=== PATIENT | female | born 1965 | race Caucasian/White ===

== ENCOUNTER 2019-08-10 18:00 | Inpatient (IN) ==
--- NOTE | 2019-08-10 18:20 | DR.EXTPAIN ---
HPI - Time seen Time seen: 18:30 - PCP Primary Care Physician: andrew ortiz - HPI Comment HPI Comment: Patient saw her PCP and had labs drawn. She had been feeling bad and her labs came back Na 116 and WBC 21. Patient denies fever, cough, sore throat dysuria, skin infections. - Complaint/Symptoms Chief Complaint:: pt stated her doctor told her to come her to be admitted cause her labs her out of range. - Nurses notes reviewed Nurses Notes Review: Yes - Source History Provided: Patient - Mode of arrival Mode of Arrival: Wheelchair - Timing Onset of Chief Complaint: 07/31/19 PMH - PMH Past Medical History: Yes Past Medical History: Depression, Hypertension, Hypothyroidism Past Surgical History: Yes Surgical History: Joint Replacement - Family History History of Family Medical Conditions: Yes Family Medical History: Diabetes Mellitus, Coronary Artery Disease, Hypertension - Social History Does patient currently use any type of tobacco product: No Have you used tobacco products in the last 12 months: No Type of Tobacco Use: None Does any household member use tobacco: No Alcohol Use: None Do you use any recreational Drugs:: No Lives With: Family Lives Where: Home - infectious screening In the last 2 months have you had wt loss of >10#?: NO Have you had fever, night sweats or hemotysis?: No Have you traveled outside the country in the last 6 months?: No Isolation: Standard ROS - Review of Systems Constitutional: No Symptoms Reported Eyes: No Symptoms Reported ENTM: No Symptoms Reported Respiratoy: No Symptoms Reported Cardiovascular: No Symptoms Reported Gastrointestinal/Abdominal: No Symptoms Reported Genitourinary: No Symptoms Reported Neurological: No Symptoms Reported Musculoskeletal: Foot (right foot pain) Integumentary: No Symptoms Reported Hematologic/Lymphatic: No Symptoms Reported Endocrine: Other (thyroid disorder) Psychiatric: Depression All Other Systems: Reviewed and Negative PE - General Limitations: No Limitations General Appearance: Alert, In No Apparent Distress - Head Head Exam: Normal Inspection - Eyes Eye exam: Normal Appearance, EOMI - ENT ENT Exam: Normal Exam, Normal Oropharynx - Neck Neck Exam: Normal Inspection, Full ROM, Trachea Midline - Chest Chest Inspection: Normal Inspection - Respiratory Respiratory Exam: Normal Lung Sounds Bilat. negative: Respiratory Distress Respiratory Exam: Bilateral Clear to Auscultation - Cardiovascular Cardiovascular Exam: Regular Rate - Abdominal Exam Abdominal Exam: Normal Inspection, Normal Bowel Sounds, Soft. negative: Distention - Extremities Extremities Exam: Normal Inspection, Full ROM - Upper Extremities Shoulder Exam: Normal Inspection Arm Exam: Normal Inspection Elbow Exam: Normal Inspection Forearm Exam: Normal Inspection Hand Exam: Normal Inspection Neurosensory Exam: Normal Exam - Lower Extremities Hip/Pelvis Exam: Normal Inspection Upper Leg Exam: Normal Inspection Knee Exam: Normal Inspection Lower Leg Exam: Normal Inspection Ankle Exam: Normal Inspection Foot/Toe Exam: Normal Inspection, Full ROM, Tenderness (right foot) - Vital Signs Vitals: Temperature 97.4 F Pulse Rate 66 Respiratory Rate 18 Blood Pressure 121/49 O2 Sat by Pulse Oximetry 96 Course - Treatment Treatment: URINE PENDING - Consultation Called: 19:30 Call Returned: 19:30 Consultation Comments: CASE DISCUSSED WITH dr. Shay ADMIT AND START LEVAQUIN AND GET CULTURES. uRINE PENDING ON ADMISSION. ROR - Labs Reviewed Result Diagrams: 08/10/19 18:54 08/10/19 18:54 - Labs Reviewed Laboratory: WBC 20.0 X10^3/uL (3.6-10.0) H 08/10/19 18:54 RBC 3.61 X10^6/uL (3.5-5.4) 08/10/19 18:54 Hgb 9.3 g/dL (12.0-16.0) L 08/10/19 18:54 Hct 27.0 % (36.0-47.0) L 08/10/19 18:54 MCV 74.8 fL (80.0-100.0) L 08/10/19 18:54 MCH 25.7 pg (27.0-34.0) L 08/10/19 18:54 MCHC 34.3 g/dL (33.0-35.0) 08/10/19 18:54 RDW 17.6 % (11.6-16.5) H 08/10/19 18:54 Plt Count 335 X10^3/uL (150.0-450.0) 08/10/19 18:54 Plt Count Comment Adequate (ADEQUATE) 08/10/19 18:54 MPV 7.5 fL (7.4-11.0) 08/10/19 18:54 Neut % (Auto) 87.6 % (42.0-75.0) H 08/10/19 18:54 Lymph % (Auto) 8.0 % (21.0-51.0) L 08/10/19 18:54 [place] % (Auto) 3.6 % (0.0-13.0) 08/10/19 18:54 Eos % (Auto) 0.3 % (0.9-2.9) L 08/10/19 18:54 Baso % (Auto) 0.5 % (0.2-1.0) 08/10/19 18:54 Neut # (Auto) 17.5 x10^3/uL (2.2-4.8) H 08/10/19 18:54 Lymph # (Auto) 1.6 X10^3/uL (1.3-2.9) 08/10/19 18:54 [place] # (Auto) 0.7 x10^3/uL (0.3-0.8) 08/10/19 18:54 Eos # (Auto) 0.1 x10^3/uL (0.0-0.2) 08/10/19 18:54 Baso # (Auto) 0.1 X10^3/uL (0.0-0.1) 08/10/19 18:54 Absolute Nucleated RBC 0.0 /100WBC 08/10/19 18:54 Plt Morphology Comment Normal (NORMAL) 08/10/19 18:54 RBC Morphology Abnormal (NORMAL) A 08/10/19 18:54 Poikilocytosis Slight A 08/10/19 18:54 Anisocytosis 1+ A 08/10/19 18:54 Microcytosis 1+ A 08/10/19 18:54 Sodium 114 mmol/L (136-145) L* 08/10/19 18:54 Corrected Sodium TNP 08/10/19 18:54 Potassium 2.4 mmol/L (3.5-5.1) L* 08/10/19 18:54 Chloride 72 mmol/L (98-107) L* 08/10/19 18:54 Carbon Dioxide > 45.0 mmol/L (21-32) H* 08/10/19 18:54 BUN 15 mg/dL (7-18) 08/10/19 18:54 Creatinine 1.48 mg/dL (0.55-1.02) H 08/10/19 18:54 Est GFR (MDRD) Af Amer 47 (>60) L 08/10/19 18:54 Est GFR (MDRD) Non-Af 39 (>60) L 08/10/19 18:54 Glucose 92 mg/dL (65-99) 08/10/19 18:54 Calcium 9.4 mg/dL (8.5-10.1) 08/10/19 18:54 Corrected Calcium TNP 08/10/19 18:54 Total Bilirubin 1.00 mg/dL (0.2-1.0) 08/10/19 18:54 AST 29 Units/L (15-37) 08/10/19 18:54 ALT 31 Units/L (12-78) 08/10/19 18:54 Alkaline Phosphatase 107 Units/L (46-116) 08/10/19 18:54 Total Protein 7.3 g/dL (6.4-8.2) 08/10/19 18:54 Albumin 3.4 g/dL (3.4-5.0) 08/10/19 18:54 Globulin 3.9 g/dL (2.5-4.5) 08/10/19 18:54 Albumin/Globulin Ratio 0.9 Ratio (1.1-2.1) L 08/10/19 18:54 Digoxin 1.44 ng/mL (0.9-2) 08/10/19 18:54 Opioid - Opioid Risk Tool Total: 0 Total Score Risk Category: Low Risk - Diagnosis Discharge Problem: Hyponatremia, Hypokalemia Leukocytosis Qualifiers: Leukocytosis type: unspecified Qualified Code(s): D72.829 - Elevated white blood cell count, unspecified - Discharge Plan Disposition: ADMITTED INPATIENT Condition: Stable
[2019-08-10] MEDS ORDERED: NS 500 ML IV 1,000 ML IV ONE (18:40)
[2019-08-10] MEDS ORDERED: NS 1000 ML 1,000 ML ONE (18:51)
--- NOTE | 2019-08-10 19:04 | RAD ---
HISTORYFell at home.STUDYFOOT, RIGHTCOMPARISONNone.FINDINGSThere is a fracture involving the right 3rd metatarsal diaphysis. There is slight overlap of the distal portion of fracture fragment. There is some overlying soft tissue swelling. The visualized portions of the talus and calcaneus are unremarkable.IMPRESSIONAcute fracture involving the right 3rd metatarsal diaphysis.Electronically signed by: ELIECER MARIN (Aug 10, 2019 19:02:36)
[2019-08-10 19:08] LABS: BASOPHILS # (AUTO) 0.1 X10^3/uL (0.0-0.1); BASOPHILS % (AUTO) 0.5 % (0.2-1.0); EOSINOPHILS # (AUTO) 0.1 x10^3/uL (0.0-0.2); EOSINOPHILS % (AUTO) 0.3 % (0.9-2.9); HEMOGLOBIN 9.3 g/dL (12.0-16.0); LYMPHOCYTES # (AUTO) 1.6 X10^3/uL (1.3-2.9); MEAN CORPUSCULAR HEMOGLOBIN 25.7 pg (27.0-34.0); MEAN CORPUSCULAR HGB CONC 34.3 g/dL (33.0-35.0); MEAN CORPUSCULAR VOLUME 74.8 fL (80.0-100.0); MEAN PLATELET VOLUME 7.5 fL (7.4-11.0); MONOCYTES # (AUTO) 0.7 x10^3/uL (0.3-0.8); MONOCYTES % (AUTO) 3.6 % (0.0-13.0); NEUTROPHILS # (AUTO) 17.5 x10^3/uL (2.2-4.8); NEUTROPHILS % (AUTO) 87.6 % (42.0-75.0); PLATELET COUNT 335 X10^3/uL (150.0-450.0); RED BLOOD COUNT 3.61 X10^6/uL (3.5-5.4); RED CELL DISTRIBUTION WIDTH 17.6 % (11.6-16.5)
[2019-08-10 19:12] LABS: BLOOD UREA NITROGEN 15 mg/dL (7-18); CALCIUM 9.4 mg/dL (8.5-10.1); CREATININE 1.48 mg/dL (0.55-1.02); eGFR NON BLACK RACES 39 (>60)
[2019-08-10 19:18] LABS: ALANINE AMINOTRANSFERASE 31 Units/L (12-78); ALBUMIN 3.4 g/dL (3.4-5.0); ALKALINE PHOSPHATASE 107 Units/L (46-116); ANISOCYTOSIS 1+; ASPARTATE AMINO TRANSFERASE 29 Units/L (15-37); MICROCYTOSIS 1+; PLATELET MORPHOLOGY COMMENT NORMAL (NORMAL); POIKILOCYTOSIS SLIGHT; TOTAL PROTEIN 7.3 g/dL (6.4-8.2)
[2019-08-10 19:21] LABS: CARBON DIOXIDE > 45.0 mmol/L (21-32); CHLORIDE 72 mmol/L (98-107); SODIUM 114 mmol/L (136-145)
[2019-08-10] MEDS ORDERED: LEVAQUIN PREMIX IV 750 MG 750 MG/150 ML BAG IV ONE (20:11)
[2019-08-10] MEDS: LEVAQUIN PREMIX IV 750 MG 750 MG/150 ML BAG IV SCH (20:15)
--- NOTE | 2019-08-10 21:15 | RAD ---
HISTORYpt stated her doctor told her to come her to be admitted cause her labs her out of rangeSTUDYCHEST, 1 VIEWCOMPARISONNone.FINDINGSThe trachea is midline. The cardiac silhouette is unremarkable. The lungs are clear of consolidation, focal infiltrate, effusion or pneumothorax. The bony thorax is unremarkable.IMPRESSION1. No evidence of acute cardiopulmonary abnormality.Electronically signed by: ELIECER MARIN (Aug 10, 2019 21:13:43)
[2019-08-10 23:22] VITALS: BMI 47.2
[2019-08-10] MEDS ORDERED: KLOR-CON PO ONE (23:37)
[2019-08-11] MEDS ORDERED: MAGNESIUM SULFATE 1 GRAM/100 mL PREMIX 2 G/200 ML BAG IV ONE (00:15)
[2019-08-11] MEDS: MAGNESIUM SULFATE 1 GRAM/100 mL PREMIX 1 GM/100 ML BAG IV PRN ×2 (00:30→02:42)
[2019-08-11 02:36] LABS: BILIRUBIN,URINE NEGATIVE (NEGATIVE); BLOOD/HEMOGLOBIN,URINE NEGATIVE (NEGATIVE); GLUCOSE, URINE NEGATIVE (NEGATIVE); KETONES,URINE NEGATIVE (NEGATIVE); LEUKOCYTE ESTERASE ,URINE NEGATIVE (NEGATIVE); NITRITES,URINE NEGATIVE (NEGATIVE); PROTEIN,URINE NEGATIVE (NEGATIVE); UROBILINOGEN,URINE NORMAL (NORMAL)
[2019-08-11 02:37] LABS: APPEARANCE,URINE CLEAR (CLEAR); COLOR,URINE YELLOW (YELLOW)
[2019-08-11 05:20] LABS: BASOPHILS # (AUTO) 0.1 X10^3/uL (0.0-0.1); BASOPHILS % (AUTO) 0.3 % (0.2-1.0); EOSINOPHILS # (AUTO) 0.1 x10^3/uL (0.0-0.2); EOSINOPHILS % (AUTO) 0.6 % (0.9-2.9); HEMATOCRIT 24.9 % (36.0-47.0); HEMOGLOBIN 8.6 g/dL (12.0-16.0); LYMPHOCYTES # (AUTO) 1.8 X10^3/uL (1.3-2.9); LYMPHOCYTES % (AUTO) 9.8 % (21.0-51.0); MEAN CORPUSCULAR HGB CONC 34.4 g/dL (33.0-35.0); MEAN CORPUSCULAR VOLUME 75.5 fL (80.0-100.0); MEAN PLATELET VOLUME 7.7 fL (7.4-11.0); MONOCYTES # (AUTO) 0.6 x10^3/uL (0.3-0.8); MONOCYTES % (AUTO) 3.4 % (0.0-13.0); NEUTROPHILS # (AUTO) 15.7 x10^3/uL (2.2-4.8); NEUTROPHILS % (AUTO) 85.9 % (42.0-75.0); PLATELET COUNT 256 X10^3/uL (150.0-450.0); RED CELL DISTRIBUTION WIDTH 17.4 % (11.6-16.5); WHITE BLOOD COUNT 18.2 X10^3/uL (3.6-10.0)
[2019-08-11 05:33] LABS: ALANINE AMINOTRANSFERASE 28 Units/L (12-78); ALBUMIN 2.9 g/dL (3.4-5.0); ALKALINE PHOSPHATASE 111 Units/L (46-116); ASPARTATE AMINO TRANSFERASE 28 Units/L (15-37); BLOOD UREA NITROGEN 15 mg/dL (7-18); CALCIUM 8.7 mg/dL (8.5-10.1); COR CA(FOR HYPOALB) 9.6 mg/dL (8.5-10.1); CREATININE 1.08 mg/dL (0.55-1.02); TOTAL PROTEIN 6.6 g/dL (6.4-8.2); eGFR NON BLACK RACES 56 (>60)
[2019-08-11 05:48] LABS: CARBON DIOXIDE 42.9 mmol/L (21-32); CHLORIDE 72 mmol/L (98-107); SODIUM 116 mmol/L (136-145)
[2019-08-11] MEDS ORDERED: KLOR-CON PO ONE ×2 (05:51→06:25)
[2019-08-11] MEDS: LEVAQUIN PREMIX IV 750 MG 750 MG/150 ML BAG IV SCH (09:01)
[2019-08-11] MEDS: K-DUR TAB 20 MEQ PO SCH ×2 (09:01→20:07)
[2019-08-11] MEDS ORDERED: POTASSIUM CHL 60 MEQ/NS 0.45% 500 ML IV PRN (09:07)
[2019-08-11] MEDS ORDERED: POTASSIUM CHLORIDE LIQ 20 MEQ UDC PO PRN (09:07)
[2019-08-11] MEDS ORDERED: POTASSIUM CHL 40 MEQ/NS 0.45% 500 ML IV PRN (09:07)
[2019-08-11] MEDS ORDERED: MICRO K EXTEN CAP 10 MEQ PO PRN (09:07)
[2019-08-11] MEDS ORDERED: K-RIDER 10 MEQ/NS 100 ML 10 MEQ/100 ML BAG IV PRN (09:07)
[2019-08-11] MEDS ORDERED: KLOR-CON PO PRN (09:07)
--- NOTE | 2019-08-11 09:47 | DR.H&P ---
H&P - History & Physical for Day of: H&P Date: 08/10/19 - Chief Complaint Chief Complaint: WEAKNESS, RIGHT FOOT PAIN, DIZZINESS, BLURRED VISION - History of Present Illness History of Present Illness: IS A 53 YEAR OLD PATIENT OF [facility] WHO PRESENTED TO THE ER WITH COMPLAINTS OF GENERALIZED WEAKNESS AND RIGHT FOOT PAIN. SHE REPORTS FALLING AT HOME MULTIPLE TIMES OVER THE PAST FEW WEEKS. SHE ALSO REPORTS DIZZINESS AND BLURRED VISION. OUTPATIENT LABS WERE DRAWN AT HER PCP OFFICE AND REVEALED AN ELEVATED WBC OF 21.1, SODIUM 114, AND CHLORIDE LESS THAN 60. SHE WAS INSTRUCTED TO REPORT TO THE ER FOR EVALUATION. ON ARRIVAL TO THE ER, VITALS WERE 97.4-66-18-96%-121/49. LABS WERE OBTAINED. ABNORMAL LAB VALUES INCLUDE THE FOLLOWING: WBC 20.0, HGB 9.3, HCT 27.0, SODIUM 114, POTASSIUM 2.4, CHLORIDE 72, CARBON DIOXIDE >45, CREATININE 1.48, MAGNESIUM 1.5. BLOOD CULTURES WERE OBTAINED. A CHEST XRAY WAS OBTAINED AND REVEALED: NO EVIDENCE OF ACUTE CARDIOPULMONARY ABNORMALITY. A RIGHT FOOT XRAY WAS OBTAINED AND REVEALED: ACUTE FRACTURE INVOLVING THE RIGHT 3RD METATARSAL DIAPHYSIS. SHE WAS STARED ON NORMAL SALINE AT 125ML/HR AND GIVEN KLOR-CON 60MEQ PO X 1 DOSE. SHE WAS ADMITTED FOR FURTHER EVALUATION AND TREATMENT OF LEUKOCYTOSIS, HYPONATREMIA, HYPOKALEMIA, AND GENERALIZED WEAKNESS. WE STARTED NS AT 75 ML/HR, LEVAQUIN 750MG IV DAILY, THE POTASSIUM AND MAGNESIUM PROTOCOLS, AND HOME MEDICATIONS WERE REVIEWED. WE WILL OBTAIN STOOL STUDIES AND A URINALYSIS. OTHERWISE, WE WILL FOLLOW UP WITH AM LABS AND CONTINUE TO MONITOR. - Past Medical History Past Medical History: Arthritis, Asthma, Depression, Diabetes, GERD, Hypertension, Hypothyroidism, Sleep Apnea Additional Medical History: A-FIB, FIBROMYALGIA, AVASCULAR NECROSIS, RLS - Past Surgical History Surgical History: Joint Replacement, Ortho Surgery, Other Additional Surgical History: Arthroplasty to bilateral Hands, Rt. TKA, Rt. Total Hip, [id number] Spinal Fusion, Interanial Neurostimulator inserted. - Family History Family Medical History: Diabetes Mellitus, Cancer, Coronary Artery Disease, Hy pertension - Social History Does patient currently use any type of tobacco product: No Have you used tobacco products in the last 12 months: No Type of Tobacco Use: None Does any household member use tobacco: No Alcohol Use: None Drug Use: None - Medications Home Medications: Penicillins Allergy (Verified 08/10/19 18:05) tizanidine [From Zanaflex] Allergy (Verified 08/10/19 19:25) CONTINUE taking the following medications amitriptyline 75 mg PO DAILY 08/10/19 [History] atorvastatin 40 mg PO DAILY 08/10/19 [History] budesonide-formoterol [Symbicort] 2 puff INHALATION BID 08/10/19 [History] digoxin 125 mcg PO DAILY 08/10/19 [History] flecainide 100 mg PO BID 08/10/19 [History] fluticasone propionate 1 spray INTRANASAL DAILY 08/10/19 [History] furosemide 40 mg PO DAILY 08/10/19 [History] gabapentin 600 mg PO QID 08/10/19 [History] hydrochlorothiazide 12.5 mg PO DAILY 08/10/19 [History] hydroxychloroquine 200 mg PO BID 08/10/19 [History] levalbuterol tartrate 2 puff INHALATION Q4HR PRN 08/10/19 [History] levothyroxine 150 mcg PO DAILY 08/10/19 [History] lisinopril 2.5 mg PO DAILY 08/10/19 [History] methocarbamol 750 mg PO Q6HR PRN 08/10/19 [History] metolazone 5 mg PO DAILY 08/10/19 [History] montelukast 10 mg PO DAILY 08/10/19 [History] omeprazole 40 mg PO DAILY 08/10/19 [History] oxycodone-acetaminophen 1 tab PO QID PRN 08/10/19 [History] potassium chloride 20 meq PO BID 08/10/19 [History] pramipexole 1 mg PO BID 08/10/19 [History] rivaroxaban [Xarelto] 20 mg PO DAILY 08/10/19 [History] venlafaxine 150 mg PO DAILY 08/10/19 [History] - Review of Systems Constitutional: See HPI, Weakness Eyes: See HPI ENT: No Symptoms Reported Respiratory: No Symptoms Reported Cardiovascular: [place] Gastrointestinal: No Symptoms Reported Genitourinary: No Symptoms Reported Musculoskeletal: See HPI, Foot Pain (RIGHT FOOT PAIN ) Skin: No Symptoms Reported Neurological: See HPI, Weakness - Physical Exam Vital Signs: Temperature 97.9 F Pulse Rate [Right Brachial] 109 Pulse Rate [Left] 67 Pulse Rate 66 Respiratory Rate 20 Blood Pressure [Right Arm] 107/46 Blood Pressure 121/49 O2 Sat by Pulse Oximetry 95 Oriented: Normal Eyes: Blurred Vision Ear: Normal Nose: Normal Throat: Normal Respiratory: Diminished Throughout Cardiovascular: Normal. negative: S3, S4, Murmur : Normal Auscultation: Bowel Sounds: Normal Palpation: Normal Tenderness: Normal Skin: Normal Musculoskeletal: Normal Psychiatric: Normal Mood Description: Calm Affect: Normal Speech Pattern: Clear - Assessment/Plan (1) Leukocytosis Qualifiers: Leukocytosis type: unspecified Qualified Code(s): D72.829 - Elevated white blood cell count, unspecified Status: Acute Plan: ADMIT, NS AT 75 ML/HR, LEVAQUIN 750MG IV DAILY, THE POTASSIUM AND MAGNESIUM PROTOCOLS, REVIEW HOME MEDICATIONS, OBTAIN STOOL STUDIES, OBTAIN URINALYSIS (2) Hypokalemia Status: Acute (3) Hyponatremia Status: Acute (4) Generalized weakness Status: Acute (5) Foot fracture, right Qualifiers: Encounter type: initial encounter Fracture type: closed Qualified Code(s): S92.901A - Unspecified fracture of right foot, initial encounter for closed fracture Status: Acute (6) Fall Qualifiers: Encounter type: initial encounter Qualified Code(s): W19.XXXA - Unspecified fall, initial encounter Status: Acute - Allergies Allergies/Adverse Reactions: Allergies Allergy/AdvReac Type Severity Reaction Status Date / Time Penicillins Allergy Verified 08/10/19 18:05 tizanidine [From Zanaflex] Allergy Verified 08/10/19 19:25
[2019-08-11] MEDS: LANOXIN or DIGITEK PO SCH (10:18)
[2019-08-11] MEDS: TAMBOCOR PO SCH ×2 (10:19→20:08)
[2019-08-11] MEDS: K-DUR TAB 20 MEQ PO PRN ×2 (10:30→17:23)
[2019-08-11] MEDS ORDERED: NS 1000 ML 1,000 ML ONE (10:57)
[2019-08-11] MEDS ORDERED: PERCOCET TAB 5/325 MG PO PRN (10:59)
[2019-08-11] MEDS: NS 1000 ML 1,000 ML IV SCH (11:39)
[2019-08-11] MEDS: ELAVIL PO SCH (12:16)
[2019-08-11] MEDS: EFFEXOR XR 150 MG CAP 24-HR PO SCH (12:16)
[2019-08-11] MEDS: SYNTHROID 150 mcg TAB PO SCH (12:16)
[2019-08-11] MEDS: PLAQUENIL PO SCH ×2 (12:16→20:08)
[2019-08-11] MEDS: SINGULAIR TAB 10 MG PO SCH (12:16)
[2019-08-11] MEDS: NEURONTIN TAB 600 MG PO SCH ×4 (12:17→20:09)
[2019-08-11] MEDS: PriLOSEC PO SCH (12:17)
[2019-08-11] MEDS: MIRAPEX TAB 1 MG PO SCH ×2 (12:17→20:08)
[2019-08-11] MEDS: LIPITOR TAB 40 MG PO SCH (12:17)
[2019-08-11] MEDS: ZAROXOLYN PO SCH (12:18)
[2019-08-11] MEDS: FLONASE NASAL SPRAY ENOSTRIL SCH (12:18)
[2019-08-11 20:15] LABS: CRYPTOSPORIDIUM PARVUM ANTIGEN NEGATIVE (NEGATIVE); GIARDIA LAMBLIA ANTIGEN NEGATIVE (NEGATIVE)
[2019-08-12] MEDS: NS 1000 ML 1,000 ML IV SCH ×4 (02:42→22:55)
[2019-08-12 05:05] LABS: BASOPHILS % (AUTO) 0.3 % (0.2-1.0); EOSINOPHILS # (AUTO) 0.1 x10^3/uL (0.0-0.2); EOSINOPHILS % (AUTO) 0.8 % (0.9-2.9); HEMOGLOBIN 9.1 g/dL (12.0-16.0); LYMPHOCYTES # (AUTO) 1.9 X10^3/uL (1.3-2.9); LYMPHOCYTES % (AUTO) 14.1 % (21.0-51.0); MEAN CORPUSCULAR HEMOGLOBIN 26.3 pg (27.0-34.0); MEAN CORPUSCULAR HGB CONC 33.6 g/dL (33.0-35.0); MEAN CORPUSCULAR VOLUME 78.2 fL (80.0-100.0); MEAN PLATELET VOLUME 8.1 fL (7.4-11.0); MONOCYTES # (AUTO) 0.6 x10^3/uL (0.3-0.8); MONOCYTES % (AUTO) 4.7 % (0.0-13.0); NEUTROPHILS # (AUTO) 10.9 x10^3/uL (2.2-4.8); NEUTROPHILS % (AUTO) 80.1 % (42.0-75.0); PLATELET COUNT 282 X10^3/uL (150.0-450.0); RED BLOOD COUNT 3.46 X10^6/uL (3.5-5.4); RED CELL DISTRIBUTION WIDTH 17.4 % (11.6-16.5); WHITE BLOOD COUNT 13.6 X10^3/uL (3.6-10.0)
[2019-08-12 05:12] LABS: ALANINE AMINOTRANSFERASE 28 Units/L (12-78); ALBUMIN 3.2 g/dL (3.4-5.0); ALKALINE PHOSPHATASE 105 Units/L (46-116); ASPARTATE AMINO TRANSFERASE 23 Units/L (15-37); BLOOD UREA NITROGEN 8 mg/dL (7-18); CALCIUM 9.4 mg/dL (8.5-10.1); CHLORIDE 86 mmol/L (98-107); CREATININE 0.76 mg/dL (0.55-1.02); SODIUM 129 mmol/L (136-145); TOTAL PROTEIN 7.1 g/dL (6.4-8.2); eGFR NON BLACK RACES > 60 (>60)
[2019-08-12] MEDS: EFFEXOR XR 150 MG CAP 24-HR PO SCH (08:37)
[2019-08-12] MEDS: LIPITOR TAB 40 MG PO SCH (08:37)
[2019-08-12] MEDS: LANOXIN or DIGITEK PO SCH (08:37)
[2019-08-12] MEDS: LEVAQUIN PREMIX IV 750 MG 750 MG/150 ML BAG IV SCH (08:37)
[2019-08-12] MEDS: K-DUR TAB 20 MEQ PO SCH ×2 (08:38→20:35)
[2019-08-12] MEDS: PriLOSEC PO SCH (08:38)
[2019-08-12] MEDS: SINGULAIR TAB 10 MG PO SCH (08:38)
[2019-08-12] MEDS: PLAQUENIL PO SCH ×2 (08:38→20:35)
[2019-08-12] MEDS: NEURONTIN TAB 600 MG PO SCH ×4 (08:39→20:35)
[2019-08-12] MEDS: FLONASE NASAL SPRAY ENOSTRIL SCH (08:39)
[2019-08-12] MEDS: TAMBOCOR PO SCH ×2 (08:39→20:35)
[2019-08-12] MEDS: SYNTHROID 150 mcg TAB PO SCH (08:39)
[2019-08-12] MEDS: MIRAPEX TAB 1 MG PO SCH ×2 (08:39→20:35)
[2019-08-12] MEDS: ZAROXOLYN PO SCH (08:40)
[2019-08-12] MEDS: ELAVIL PO SCH (08:40)
[2019-08-13] MEDS: NS 1000 ML 1,000 ML IV SCH ×3 (04:47→20:18)
[2019-08-13 06:22] LABS: BASOPHILS % (AUTO) 0.3 % (0.2-1.0); EOSINOPHILS # (AUTO) 0.1 x10^3/uL (0.0-0.2); HEMATOCRIT 25.6 % (36.0-47.0); HEMOGLOBIN 8.6 g/dL (12.0-16.0); LYMPHOCYTES # (AUTO) 1.8 X10^3/uL (1.3-2.9); LYMPHOCYTES % (AUTO) 15.4 % (21.0-51.0); MEAN CORPUSCULAR HEMOGLOBIN 26.4 pg (27.0-34.0); MEAN CORPUSCULAR HGB CONC 33.7 g/dL (33.0-35.0); MEAN CORPUSCULAR VOLUME 78.4 fL (80.0-100.0); MEAN PLATELET VOLUME 7.4 fL (7.4-11.0); MONOCYTES # (AUTO) 0.4 x10^3/uL (0.3-0.8); MONOCYTES % (AUTO) 3.6 % (0.0-13.0); NEUTROPHILS # (AUTO) 9.4 x10^3/uL (2.2-4.8); NEUTROPHILS % (AUTO) 79.7 % (42.0-75.0); PLATELET COUNT 271 X10^3/uL (150.0-450.0); RED BLOOD COUNT 3.27 X10^6/uL (3.5-5.4); RED CELL DISTRIBUTION WIDTH 17.7 % (11.6-16.5); WHITE BLOOD COUNT 11.8 X10^3/uL (3.6-10.0)
[2019-08-13 06:23] LABS: ALANINE AMINOTRANSFERASE 29 Units/L (12-78); ALBUMIN 3.1 g/dL (3.4-5.0); ALKALINE PHOSPHATASE 104 Units/L (46-116); ASPARTATE AMINO TRANSFERASE 20 Units/L (15-37); BLOOD UREA NITROGEN 9 mg/dL (7-18); CARBON DIOXIDE 37.6 mmol/L (21-32); CHLORIDE 91 mmol/L (98-107); COR CA(FOR HYPOALB) 9.7 mg/dL (8.5-10.1); COR NA(FOR HYPERGLY) 133 mmol/L (136-145); CREATININE 0.89 mg/dL (0.55-1.02); SODIUM 132 mmol/L (136-145); TOTAL PROTEIN 6.9 g/dL (6.4-8.2); eGFR NON BLACK RACES > 60 (>60)
[2019-08-13] MEDS: TAMBOCOR PO SCH ×2 (09:05→21:15)
[2019-08-13] MEDS: SYNTHROID 150 mcg TAB PO SCH (09:05)
[2019-08-13] MEDS: SINGULAIR TAB 10 MG PO SCH (09:06)
[2019-08-13] MEDS: PriLOSEC PO SCH (09:06)
[2019-08-13] MEDS: LIPITOR TAB 40 MG PO SCH (09:07)
[2019-08-13] MEDS: EFFEXOR XR 150 MG CAP 24-HR PO SCH (09:07)
[2019-08-13] MEDS: LANOXIN or DIGITEK PO SCH (09:07)
[2019-08-13] MEDS: PLAQUENIL PO SCH ×2 (09:07→21:15)
[2019-08-13] MEDS: K-DUR TAB 20 MEQ PO SCH ×2 (09:07→21:15)
[2019-08-13] MEDS: NEURONTIN TAB 600 MG PO SCH ×4 (09:07→21:15)
[2019-08-13] MEDS: FLONASE NASAL SPRAY ENOSTRIL SCH (09:08)
[2019-08-13] MEDS: LEVAQUIN PREMIX IV 750 MG 750 MG/150 ML BAG IV SCH (09:08)
[2019-08-13] MEDS: ELAVIL PO SCH ×2 (09:08→21:17)
[2019-08-13] MEDS: MIRAPEX TAB 1 MG PO SCH ×2 (09:09→21:15)
[2019-08-13] MEDS: ZAROXOLYN PO SCH (09:09)
[2019-08-13] MEDS ORDERED: AMBIEN PO PRN (20:20)
[2019-08-14 05:10] LABS: BASOPHILS # (AUTO) 0.1 X10^3/uL (0.0-0.1); BASOPHILS % (AUTO) 0.5 % (0.2-1.0); EOSINOPHILS # (AUTO) 0.1 x10^3/uL (0.0-0.2); HEMATOCRIT 24.9 % (36.0-47.0); HEMOGLOBIN 8.2 g/dL (12.0-16.0); LYMPHOCYTES # (AUTO) 2.2 X10^3/uL (1.3-2.9); LYMPHOCYTES % (AUTO) 18.3 % (21.0-51.0); MEAN CORPUSCULAR HEMOGLOBIN 25.9 pg (27.0-34.0); MEAN CORPUSCULAR HGB CONC 33.1 g/dL (33.0-35.0); MEAN CORPUSCULAR VOLUME 78.3 fL (80.0-100.0); MEAN PLATELET VOLUME 7.4 fL (7.4-11.0); MONOCYTES # (AUTO) 0.6 x10^3/uL (0.3-0.8); MONOCYTES % (AUTO) 5.1 % (0.0-13.0); NEUTROPHILS # (AUTO) 8.9 x10^3/uL (2.2-4.8); NEUTROPHILS % (AUTO) 75.1 % (42.0-75.0); PLATELET COUNT 269 X10^3/uL (150.0-450.0); RED BLOOD COUNT 3.18 X10^6/uL (3.5-5.4); RED CELL DISTRIBUTION WIDTH 17.8 % (11.6-16.5); WHITE BLOOD COUNT 11.9 X10^3/uL (3.6-10.0)
[2019-08-14 05:25] LABS: ALANINE AMINOTRANSFERASE 29 Units/L (12-78); ALKALINE PHOSPHATASE 101 Units/L (46-116); ASPARTATE AMINO TRANSFERASE 18 Units/L (15-37); BLOOD UREA NITROGEN 10 mg/dL (7-18); CALCIUM 8.8 mg/dL (8.5-10.1); CARBON DIOXIDE 34.9 mmol/L (21-32); CHLORIDE 92 mmol/L (98-107); COR CA(FOR HYPOALB) 9.6 mg/dL (8.5-10.1); CREATININE 0.81 mg/dL (0.55-1.02); SODIUM 133 mmol/L (136-145); TOTAL PROTEIN 6.7 g/dL (6.4-8.2); eGFR NON BLACK RACES > 60 (>60)
[2019-08-14 05:41] LABS: PLATELET MORPHOLOGY COMMENT NORMAL (NORMAL)
[2019-08-14] MEDS: NEURONTIN TAB 600 MG PO SCH (09:21)
[2019-08-14] MEDS: PLAQUENIL PO SCH (09:21)
[2019-08-14] MEDS: LANOXIN or DIGITEK PO SCH (09:21)
[2019-08-14] MEDS: LEVAQUIN PREMIX IV 750 MG 750 MG/150 ML BAG IV SCH (09:21)
[2019-08-14] MEDS: EFFEXOR XR 150 MG CAP 24-HR PO SCH (09:22)
[2019-08-14] MEDS: K-DUR TAB 20 MEQ PO SCH (09:23)
[2019-08-14] MEDS: PriLOSEC PO SCH (09:23)
[2019-08-14] MEDS: TAMBOCOR PO SCH (09:23)
[2019-08-14] MEDS: FLONASE NASAL SPRAY ENOSTRIL SCH (09:24)
[2019-08-14] MEDS: MIRAPEX TAB 1 MG PO SCH (09:24)
[2019-08-14] MEDS: LIPITOR TAB 40 MG PO SCH (09:24)
[2019-08-14] MEDS: SINGULAIR TAB 10 MG PO SCH (09:24)
[2019-08-14] MEDS: ZAROXOLYN PO SCH (09:25)
[2019-08-14] MEDS: SYNTHROID 150 mcg TAB PO SCH (09:25)
[2019-08-14] MEDS: NS 1000 ML 1,000 ML IV SCH (09:25)
--- NOTE | 2019-08-14 09:42 | PCM.PROG ---
Progress Note - Progress Note for Day of Date of Exam: 08/12/19 - Subjective Subjective: IS BEING TREATED FOR LEUKOCYTOSIS, HYPOKALEMIA, HYPONATREMIA, AND GENERALIZED WEAKNESS. SHE ALSO HAS A RIGHT FOOT FRACTURE. TODAY, SHE IS ALERT AND ORIENTED, LYING IN BED ON MORNING ROUNDS. SHE CONTINUES WITH WEAKNESS, BUT REPORTS SLIGHT IMPROVEMENT IN SYMPTOMS SINCE ADMISSION. ON EXAMINATION, HEART IS REGULAR IN RATE AND RHYTHM. BILATERAL LUNGS ARE NOTED WITH DIMINISHED LUNG SOUNDS THROUGHOUT. ABDOMEN IS ROUND, SOFT, AND NOTED WITH NORMAL BOWEL SOUNDS IN ALL QUADRANTS. RIGHT FOOT IS NOTED WITH NON-PITTING EDEMA. HER VITALS THIS MORNING ARE: 97.6-62-20-100%-130/58. LABS WERE OBTAINED. ABNORMAL LAB VALUES INCLUDE THE FOLLOWING: WBC 13.6, RBC 3.46, HGB 9.1, HCT 27.0, SODIUM 129, CHLORIDE 86, CARBON DIOXIDE 41.0, GLUCOSE 104, ALBUMIN 3.2. STOOL STUDIES ARE NEGATIVE. BLOOD CULTURES ARE PENDING. SHE IS CURRENTLY RECEIVING NS AT 75 ML/HR, LEVAQUIN 750MG IV DAILY, THE POTASSIUM AND MAGNESIUM PROTOCOLS, AND HOME MEDICATIONS WERE REVIEWED. WE WILL CONTINUE WITH CURRENT PLAN OF CARE TODAY. OTHERWISE, WE WILL FOLLOW UP WITH AM LABS AND CONTINUE TO MONITOR. - Past Medical Family Social History Past Med/Fam/Surg Hx: No changes since H&P Allergies: Allergies Penicillins Allergy (Verified 08/10/19 18:05) tizanidine [From Zanaflex] Allergy (Verified 08/10/19 19:25) - Review of Systems ROS: No change since H&P - Vital Signs and I&O's Vital Signs: Temperature 98.4 F Pulse Rate [Right Brachial] 54 Pulse Rate [Left] 67 Pulse Rate 76 Respiratory Rate 22 Blood Pressure [Right Arm] 154/77 Blood Pressure 121/49 O2 Sat by Pulse Oximetry 94 Intake and Output: Intake & Output 08/11/19 08/12/19 08/13/19 08/14/19 11:59 11:59 11:59 11:59 Intake Total 2344 / 2344 2900 / 2900 3030 / 3030 3770 / 3770 Balance 2344 / 2344 2900 / 2900 3030 / 3030 3770 / 3770 - Physical Exam Oriented: Normal Eyes: Blurred Vision Ear: Normal Nose: Normal Throat: Normal Respiratory: Generalized, Diminished Cardiovascular: Normal. negative: S3, S4, Murmur : Normal Auscultation: Bowel Sounds: Normal Palpation: Normal Tenderness: Normal Skin: Normal Musculoskeletal: Normal Psychiatric: Normal Mood Description: Calm Affect: Normal Speech Pattern: Clear, Appropriate - Laboratory and Diagnostics Result Diagrams: 08/14/19 04:28 08/14/19 04:28 Labs: 08/11/19 19:15 Stool Stool Culture - Final 08/11/19 19:15 Stool - Final 08/10/19 18:58 Blood Blood Culture - Preliminary 08/10/19 18:54 Blood Blood Culture - Preliminary Laboratory WBC 11.9 X10^3/uL (3.6-10.0) H 08/14/19 04:28 RBC 3.18 X10^6/uL (3.5-5.4) L 08/14/19 04:28 Hgb 8.2 g/dL (12.0-16.0) L 08/14/19 04:28 Hct 24.9 % (36.0-47.0) L 08/14/19 04:28 MCV 78.3 fL (80.0-100.0) L 08/14/19 04:28 MCH 25.9 pg (27.0-34.0) L 08/14/19 04:28 MCHC 33.1 g/dL (33.0-35.0) 08/14/19 04:28 RDW 17.8 % (11.6-16.5) H 08/14/19 04:28 Plt Count 269 X10^3/uL (150.0-450.0) 08/14/19 04:28 Plt Count Comment Adequate (ADEQUATE) 08/14/19 04:28 MPV 7.4 fL (7.4-11.0) 08/14/19 04:28 Neut % (Auto) 75.1 % (42.0-75.0) H 08/14/19 04:28 Lymph % (Auto) 18.3 % (21.0-51.0) L 08/14/19 04:28 [place] % (Auto) 5.1 % (0.0-13.0) 08/14/19 04:28 Eos % (Auto) 1.0 % (0.9-2.9) 08/14/19 04:28 Baso % (Auto) 0.5 % (0.2-1.0) 08/14/19 04:28 Neut # (Auto) 8.9 x10^3/uL (2.2-4.8) H 08/14/19 04:28 Lymph # (Auto) 2.2 X10^3/uL (1.3-2.9) 08/14/19 04:28 [place] # (Auto) 0.6 x10^3/uL (0.3-0.8) 08/14/19 04:28 Eos # (Auto) 0.1 x10^3/uL (0.0-0.2) 08/14/19 04:28 Baso # (Auto) 0.1 X10^3/uL (0.0-0.1) 08/14/19 04:28 Absolute Nucleated RBC 0.0 /100WBC 08/14/19 04:28 Plt Morphology Comment Normal (NORMAL) 08/14/19 04:28 RBC Morphology Normal (NORMAL) 08/14/19 04:28 Poikilocytosis Slight A 08/10/19 18:54 Anisocytosis 1+ A 08/10/19 18:54 Microcytosis 1+ A 08/10/19 18:54 Sodium 133 mmol/L (136-145) L 08/14/19 04:28 Corrected Sodium TNP 08/14/19 04:28 Potassium 3.6 mmol/L (3.5-5.1) 08/14/19 04:28 Chloride 92 mmol/L (98-107) L 08/14/19 04:28 Carbon Dioxide 34.9 mmol/L (21-32) H 08/14/19 04:28 BUN 10 mg/dL (7-18) 08/14/19 04:28 Creatinine 0.81 mg/dL (0.55-1.02) 08/14/19 04:28 Est GFR (MDRD) Af Amer > 60 (>60) 08/14/19 04:28 Est GFR (MDRD) Non-Af > 60 (>60) 08/14/19 04:28 Glucose 108 mg/dL (65-99) H 08/14/19 04:28 POC Glucose (mg/dL) 103 mg/dL (65-99) H 08/14/19 05:23 Calcium 8.8 mg/dL (8.5-10.1) 08/14/19 04:28 Corrected Calcium 9.6 mg/dL (8.5-10.1) 08/14/19 04:28 Magnesium 2.2 mg/dL (1.7-2.9) 08/11/19 04:07 Total Bilirubin 0.40 mg/dL (0.2-1.0) 08/14/19 04:28 AST 18 Units/L (15-37) 08/14/19 04:28 ALT 29 Units/L (12-78) 08/14/19 04:28 Alkaline Phosphatase 101 Units/L (46-116) 08/14/19 04:28 Total Protein 6.7 g/dL (6.4-8.2) 08/14/19 04:28 Albumin 3.0 g/dL (3.4-5.0) L 08/14/19 04:28 Globulin 3.7 g/dL (2.5-4.5) 08/14/19 04:28 Albumin/Globulin Ratio 0.8 Ratio (1.1-2.1) L 08/14/19 04:28 Specimen Type Clean catch urine 08/11/19 02:26 Urine Color Yellow (YELLOW) 08/11/19 02:26 Urine Appearance Clear (CLEAR) 08/11/19 02:26 Urine pH 7.0 (5.0 - 8.0) 08/11/19 02:26 Ur Specific [place] 1.005 (1.000-1.030) 08/11/19 02:26 Urine Protein Negative (NEGATIVE) 08/11/19 02:26 Urine Glucose (UA) Negative (NEGATIVE) 08/11/19 02:26 Urine Ketones Negative (NEGATIVE) 08/11/19 02:26 Urine Occult Blood Negative (NEGATIVE) 08/11/19 02:26 Urine Nitrite Negative (NEGATIVE) 08/11/19 02:26 Urine Bilirubin Negative (NEGATIVE) 08/11/19 02:26 Urine Urobilinogen Normal (NORMAL) 08/11/19 02:26 Ur Leukocyte Esterase Negative (NEGATIVE) 08/11/19 02:26 Stool Description 125g,alvarenga,liquid 08/11/19 19:15 Stool Description 125g,alvarenga,liquid 08/11/19 19:15 Stl Occult Blood (IFOB) Negative (NEGATIVE) 08/11/19 19:15 Stool for White Cells Negative (NEGATIVE) 08/11/19 19:15 Stl C. diff Tox B Gene Negative (NEGATIVE) 08/11/19 19:15 Stl C. diff [id number] Negative (NEGATIVE) 08/11/19 19:15 Stool H. pylori Ag Negative (NEGATIVE) 08/11/19 19:15 Digoxin 1.44 ng/mL (0.9-2) 08/10/19 18:54 Cryptosporid parvum Ag Negative (NEGATIVE) 08/11/19 19:15 Giardia lamblia Ag Negative (NEGATIVE) 08/11/19 19:15 - Plan (1) Leukocytosis Status: Acute Qualifiers: Leukocytosis type: unspecified Qualified Code(s): D72.829 - Elevated white blood cell count, unspecified Plan: NS AT 75 ML/HR, LEVAQUIN 750MG IV DAILY, THE POTASSIUM AND MAGNESIUM PROTOCOLS, REVIEW HOME MEDICATIONS, OBTAIN STOOL STUDIES, OBTAIN URINALYSIS (2) Hypokalemia Status: Acute (3) Hyponatremia Status: Acute (4) Generalized weakness Status: Acute (5) Foot fracture, right Status: Acute Qualifiers: Encounter type: initial encounter Fracture type: closed Qualified Code(s): S92.901A - Unspecified fracture of right foot, initial encounter for closed fracture (6) Fall Status: Acute Qualifiers: Encounter type: initial encounter Qualified Code(s): W19.XXXA - Unspecified fall, initial encounter
--- NOTE | 2019-08-14 09:44 | PCM.PROG ---
Progress Note - Progress Note for Day of Date of Exam: 08/13/19 - Subjective Subjective: IS BEING TREATED FOR LEUKOCYTOSIS, HYPOKALEMIA, HYPONATREMIA, AND GENERALIZED WEAKNESS. SHE ALSO HAS A RIGHT FOOT FRACTURE. TODAY, SHE IS ALERT AND ORIENTED, LYING IN BED ON MORNING ROUNDS. SHE CONTINUES WITH WEAKNESS, BUT REPORTS SLIGHT IMPROVEMENT IN SYMPTOMS SINCE ADMISSION. ON EXAMINATION, HEART IS REGULAR IN RATE AND RHYTHM. BILATERAL LUNGS ARE NOTED WITH DIMINISHED LUNG SOUNDS THROUGHOUT. ABDOMEN IS ROUND, SOFT, AND NOTED WITH NORMAL BOWEL SOUNDS IN ALL QUADRANTS. RIGHT FOOT IS NOTED WITH NON-PITTING EDEMA. HER VITALS THIS MORNING ARE: 97.6-68-20-99%-157/80. LABS WERE OBTAINED. ABNORMAL LAB VALUES INCLUDE THE FOLLOWING: WBC 11.8, RBC 3.27, HGB 8.6, HCT 25.6, SODIUM 132, CHLORIDE 91, CARBON DIOXIDE 37.6, GLUCOSE 147, ALBUMIN 3.1. BLOOD CULTURES ARE PENDING. SHE IS CURRENTLY RECEIVING NS AT 75 ML/HR, LEVAQUIN 750MG IV DAILY, THE POTASSIUM AND MAGNESIUM PROTOCOLS, AND HOME MEDICATIONS WERE REVIEWED. WE WILL CONTINUE WITH CURRENT PLAN OF CARE TODAY. OTHERWISE, WE WILL FOLLOW UP WITH AM LABS AND CONTINUE TO MONITOR. - Past Medical Family Social History Past Med/Fam/Surg Hx: No changes since H&P Allergies: Allergies Penicillins Allergy (Verified 08/10/19 18:05) tizanidine [From Zanaflex] Allergy (Verified 08/10/19 19:25) - Review of Systems ROS: No change since H&P - Vital Signs and I&O's Vital Signs: Temperature 98.4 F Pulse Rate [Right Brachial] 54 Pulse Rate [Left] 67 Pulse Rate 76 Respiratory Rate 22 Blood Pressure [Right Arm] 154/77 Blood Pressure 121/49 O2 Sat by Pulse Oximetry 94 Intake and Output: Intake & Output 08/11/19 08/12/19 08/13/19 08/14/19 11:59 11:59 11:59 11:59 Intake Total 2344 / 2344 2900 / 2900 3030 / 3030 3770 / 3770 Balance 2344 / 2344 2900 / 2900 3030 / 3030 3770 / 3770 - Physical Exam Oriented: Normal Eyes: Blurred Vision Ear: Normal Nose: Normal Throat: Normal Respiratory: Generalized, Diminished Cardiovascular: Normal. negative: S3, S4, Murmur : Normal Auscultation: Bowel Sounds: Normal Palpation: Normal Tenderness: Normal Skin: Normal Musculoskeletal: Normal Psychiatric: Normal Mood Description: Calm Affect: Normal Speech Pattern: Clear, Appropriate - Laboratory and Diagnostics Result Diagrams: 08/14/19 04:28 08/14/19 04:28 Labs: 08/11/19 19:15 Stool Stool Culture - Final 08/11/19 19:15 Stool - Final 08/10/19 18:58 Blood Blood Culture - Preliminary 08/10/19 18:54 Blood Blood Culture - Preliminary Laboratory WBC 11.9 X10^3/uL (3.6-10.0) H 08/14/19 04:28 RBC 3.18 X10^6/uL (3.5-5.4) L 08/14/19 04:28 Hgb 8.2 g/dL (12.0-16.0) L 08/14/19 04:28 Hct 24.9 % (36.0-47.0) L 08/14/19 04:28 MCV 78.3 fL (80.0-100.0) L 08/14/19 04:28 MCH 25.9 pg (27.0-34.0) L 08/14/19 04:28 MCHC 33.1 g/dL (33.0-35.0) 08/14/19 04:28 RDW 17.8 % (11.6-16.5) H 08/14/19 04:28 Plt Count 269 X10^3/uL (150.0-450.0) 08/14/19 04:28 Plt Count Comment Adequate (ADEQUATE) 08/14/19 04:28 MPV 7.4 fL (7.4-11.0) 08/14/19 04:28 Neut % (Auto) 75.1 % (42.0-75.0) H 08/14/19 04:28 Lymph % (Auto) 18.3 % (21.0-51.0) L 08/14/19 04:28 [place] % (Auto) 5.1 % (0.0-13.0) 08/14/19 04:28 Eos % (Auto) 1.0 % (0.9-2.9) 08/14/19 04:28 Baso % (Auto) 0.5 % (0.2-1.0) 08/14/19 04:28 Neut # (Auto) 8.9 x10^3/uL (2.2-4.8) H 08/14/19 04:28 Lymph # (Auto) 2.2 X10^3/uL (1.3-2.9) 08/14/19 04:28 [place] # (Auto) 0.6 x10^3/uL (0.3-0.8) 08/14/19 04:28 Eos # (Auto) 0.1 x10^3/uL (0.0-0.2) 08/14/19 04:28 Baso # (Auto) 0.1 X10^3/uL (0.0-0.1) 08/14/19 04:28 Absolute Nucleated RBC 0.0 /100WBC 08/14/19 04:28 Plt Morphology Comment Normal (NORMAL) 08/14/19 04:28 RBC Morphology Normal (NORMAL) 08/14/19 04:28 Poikilocytosis Slight A 08/10/19 18:54 Anisocytosis 1+ A 08/10/19 18:54 Microcytosis 1+ A 08/10/19 18:54 Sodium 133 mmol/L (136-145) L 08/14/19 04:28 Corrected Sodium TNP 08/14/19 04:28 Potassium 3.6 mmol/L (3.5-5.1) 08/14/19 04:28 Chloride 92 mmol/L (98-107) L 08/14/19 04:28 Carbon Dioxide 34.9 mmol/L (21-32) H 08/14/19 04:28 BUN 10 mg/dL (7-18) 08/14/19 04:28 Creatinine 0.81 mg/dL (0.55-1.02) 08/14/19 04:28 Est GFR (MDRD) Af Amer > 60 (>60) 08/14/19 04:28 Est GFR (MDRD) Non-Af > 60 (>60) 08/14/19 04:28 Glucose 108 mg/dL (65-99) H 08/14/19 04:28 POC Glucose (mg/dL) 103 mg/dL (65-99) H 08/14/19 05:23 Calcium 8.8 mg/dL (8.5-10.1) 08/14/19 04:28 Corrected Calcium 9.6 mg/dL (8.5-10.1) 08/14/19 04:28 Magnesium 2.2 mg/dL (1.7-2.9) 08/11/19 04:07 Total Bilirubin 0.40 mg/dL (0.2-1.0) 08/14/19 04:28 AST 18 Units/L (15-37) 08/14/19 04:28 ALT 29 Units/L (12-78) 08/14/19 04:28 Alkaline Phosphatase 101 Units/L (46-116) 08/14/19 04:28 Total Protein 6.7 g/dL (6.4-8.2) 08/14/19 04:28 Albumin 3.0 g/dL (3.4-5.0) L 08/14/19 04:28 Globulin 3.7 g/dL (2.5-4.5) 08/14/19 04:28 Albumin/Globulin Ratio 0.8 Ratio (1.1-2.1) L 08/14/19 04:28 Specimen Type Clean catch urine 08/11/19 02:26 Urine Color Yellow (YELLOW) 08/11/19 02:26 Urine Appearance Clear (CLEAR) 08/11/19 02:26 Urine pH 7.0 (5.0 - 8.0) 08/11/19 02:26 Ur Specific [place] 1.005 (1.000-1.030) 08/11/19 02:26 Urine Protein Negative (NEGATIVE) 08/11/19 02:26 Urine Glucose (UA) Negative (NEGATIVE) 08/11/19 02:26 Urine Ketones Negative (NEGATIVE) 08/11/19 02:26 Urine Occult Blood Negative (NEGATIVE) 08/11/19 02:26 Urine Nitrite Negative (NEGATIVE) 08/11/19 02:26 Urine Bilirubin Negative (NEGATIVE) 08/11/19 02:26 Urine Urobilinogen Normal (NORMAL) 08/11/19 02:26 Ur Leukocyte Esterase Negative (NEGATIVE) 08/11/19 02:26 Stool Description 125g,alvarenga,liquid 08/11/19 19:15 Stool Description 125g,alvarenga,liquid 08/11/19 19:15 Stl Occult Blood (IFOB) Negative (NEGATIVE) 08/11/19 19:15 Stool for White Cells Negative (NEGATIVE) 08/11/19 19:15 Stl C. diff Tox B Gene Negative (NEGATIVE) 08/11/19 19:15 Stl C. diff [id number] Negative (NEGATIVE) 08/11/19 19:15 Stool H. pylori Ag Negative (NEGATIVE) 08/11/19 19:15 Digoxin 1.44 ng/mL (0.9-2) 08/10/19 18:54 Cryptosporid parvum Ag Negative (NEGATIVE) 08/11/19 19:15 Giardia lamblia Ag Negative (NEGATIVE) 08/11/19 19:15 - Plan (1) Leukocytosis Status: Acute Qualifiers: Leukocytosis type: unspecified Qualified Code(s): D72.829 - Elevated white blood cell count, unspecified Plan: NS AT 75 ML/HR, LEVAQUIN 750MG IV DAILY, THE POTASSIUM AND MAGNESIUM PROTOCOLS, REVIEW HOME MEDICATIONS, OBTAIN STOOL STUDIES, OBTAIN URINALYSIS (2) Hypokalemia Status: Acute (3) Hyponatremia Status: Acute (4) Generalized weakness Status: Acute (5) Foot fracture, right Status: Acute Qualifiers: Encounter type: initial encounter Fracture type: closed Qualified Code(s): S92.901A - Unspecified fracture of right foot, initial encounter for closed fracture (6) Fall Status: Acute Qualifiers: Encounter type: initial encounter Qualified Code(s): W19.XXXA - Unspecified fall, initial encounter
[2019-08-14 13:55] VITALS: BP 127/58
[2019-08-14] MEDS ORDERED: ELAVIL PO SCH (21:00)
== END 2019-08-14 12:05 | disposition home or self-care (01) | DRG 641 ==
LOC: ER 18:04 → MED/SURG 19:15
PROVIDERS: ADMIT Internal Medicine; ATTEND Internal Medicine
DX: E03.8 Other specified hypothyroidism; I10 Essential (primary) hypertension; R53.1 Weakness; D72.828 Other elevated white blood cell count; S92.334A Nondisplaced fracture of third metatarsal bone, right foot, initial encounter for closed fracture; E87.6 Hypokalemia; Y92.9 Unspecified place or not applicable; E87.1 Hypo-osmolality and hyponatremia; W18.39XA Other fall on same level, initial encounter; Z91.81 History of falling; R26.89 Other abnormalities of gait and mobility
CPT/HCPCS: 36415; 71010; 71045; 73630; 80053; 80162; 81003; 82270; 83630; 83735; 84132; 85025; 87040; 87045; 87328; 87329; 87338; 87427; 87449; 87493; 87899; 94760; 96365; 96367; 96374; 97110; 97161; 99284; A4216; A4222; J1956; J3475; J7030; J7040